=== PATIENT | female | born 2000 | race Caucasian/White ===

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

== ENCOUNTER 2018-01-18 21:01 | Emergency (ER) | payer BC ==
[2018-01-18 21:15] VITALS: BP 141/75; PULSE 96; RESP 18; TEMP 98.8
--- NOTE | 2018-01-18 21:59 | ED ---
Extremity Problem HPI - General Chief complaint: Extremity Problem,Nontraumatic Stated complaint: infected toe Time Seen by Provider: 01/18/18 21:34 Source: patient, RN notes reviewed Mode of arrival: ambulatory Limitations: no limitations - History of Present Illness Initial comments: This is a 17-year-old female who presents to the emergency department with chief complaint of toe infection. Patient states that her left great toe developed swelling and pain 2 weeks ago. She initially thought it was an ingrown toenail so clipped her nail down short. She states that today the toe became red and increasingly painful. Denies any history of MRSA. Denies any specific injuries or trauma. Denies fever, chills, chest pain, shortness of breath, abdominal pain, nausea or vomiting, constipation or diarrhea, dysuria or hematuria, numbness or tingling, headache or vision changes. - Related Data Home Medications Medication Instructions Recorded Confirmed Rivaroxaban [Xarelto] 15 mg PO DAILY 01/18/18 01/18/18 Previous Rx's Medication Instructions Recorded Cephalexin [Keflex] 500 mg PO Q12HR #20 cap 01/18/18 Mupirocin 2% Oint [Bactroban 2% 1 applic TOPICAL TID #1 tube 01/18/18 Oint] Allergies Allergy/AdvReac Type Severity Reaction Status Date / Time No Known Allergies Allergy Verified 09/24/17 14:40 Review of Systems ROS Statement: Those systems with pertinent positive or pertinent negative responses have been documented in the HPI. ROS Other: All systems not noted in ROS Statement are negative. Past Medical History Past Medical History: Deep Vein Thrombosis (DVT) History of Any Multi-Drug Resistant Organisms: None Reported Past Surgical History: No Surgical Hx Reported Past Psychological History: No Psychological Hx Reported Smoking Status: Never smoker Past Alcohol Use History: None Reported Past Drug Use History: None Reported General Exam - General Exam Comments Initial Comments: General: Awake and alert, well-developed; in no apparent distress. HEENT: Head atraumatic, normocephalic. Pupils are equal, round and reactive to light. Extraocular movements intact. Oropharynx moist without erythema or exudate. Neck: Supple. Normal ROM. Cardiovascular: Regular rate and rhythm. No murmurs, rubs or gallops. Chest symmetrical. Respiratory: Lungs clear to auscultation bilaterally. No wheezes, rales or rhonchi. Normal respiratory effort with no use of accessory muscles. Musculoskeletal: Normal ROM, no tenderness bilateral upper and lower extremities. Ambulating normally. Skin: Reader, warm and dry. Left great toe redness and swelling noted along the lateral nail edge. No active drainage or bleeding. Neurological: Alert and oriented x3. CN II-XII grossly intact. Speech is fluent and answers are appropriate. No focal neuro deficits. Psychiatric: Normal mood and affect. No overt signs of depression or anxiety noted. Limitations: no limitations Course Vital Signs 01/18/18 21:11 Temperature 98.8 F Pulse Rate 96 Respiratory 18 Rate Blood Pressure 141/75 O2 Sat by Pulse 99 Oximetry Procedures - Incision & Drainage Consent Obtained: verbal consent Medical Decision Making - Medical Decision Making This is a 17-year-old female who presents to the emergency department with chief complaint of right toe infection. Patient does appear to have paronychia lateral nail fold of the left great toe. I and D with an 11 blade was attempted. Minimal blood content was drained. This case was discussed with attending physician, Dr. Hannah who also evaluated the patient. Patient will be given prescriptions for Keflex and mupirocin ointment. Patient is in no acute distress vital signs are stable. Recommended warm compresses. She will be discharged home. Patient is in agreement with plan and voices understanding. All questions were answered. Disposition Clinical Impression: Paronychia Disposition: HOME SELF-CARE Condition: Good Instructions: Paronychia (ED) Additional Instructions: Please apply warm compresses. Please take medications as prescribed. Please follow up with primary care provider within 1-2 days. Return to emergency department if symptoms should worsen or any concerns arise. Prescriptions: Cephalexin [Keflex] 500 mg PO Q12HR #20 cap Mupirocin 2% Oint [Bactroban 2% Oint] 1 applic TOPICAL TID #1 tube Referrals: Freddy Daniels MD [Primary Care Provider] - 1-2 days Time of Disposition: 21:58
== END 2018-01-18 22:03 | disposition home or self-care (01) ==
LOC: EC 21:01
DX: L03.031 Cellulitis of right toe (principal); Z86.718 Personal history of other venous thrombosis and embolism; Z79.01 Long term (current) use of anticoagulants
CPT/HCPCS: 10060; 99282

== ENCOUNTER 2018-11-28 17:00 | Inpatient (IN) | payer BC ==
--- NOTE | 2018-11-28 19:33 | ED ---
Female Urogenital HPI - General Chief complaint: Urogenital Stated complaint: 16 weeks & leaking Time Seen by Provider: 11/28/18 19:27 Source: patient, RN notes reviewed, old records reviewed Mode of arrival: ambulatory Limitations: no limitations - History of Present Illness Initial comments: This is a 18-year-old female the ER for evaluation. Patient resents today for evaluation regards to feeling cabral of fluid earlier today. Patient denies any pain otherwise has no complaints. Patient states this is her first . Does admit to lifting some heavy objects at work maybe 20 pounds. But no other specific trauma. MD Complaint: vaginal discharge -: minutes(s) Consistency: constant Improves with: none Worsens with: none Patient : Yes Associated Symptoms: other (vaginal fluid) - Related Data Home Medications Medication Instructions Recorded Confirmed Rivaroxaban [Xarelto] 15 mg PO DAILY 01/18/18 01/18/18 Previous Rx's Medication Instructions Recorded Cephalexin [Keflex] 500 mg PO Q12HR #20 cap 01/18/18 Mupirocin 2% Oint [Bactroban 2% 1 applic TOPICAL TID #1 tube 01/18/18 Oint] Allergies Allergy/AdvReac Type Severity Reaction Status Date / Time No Known Allergies Allergy Verified 11/28/18 17:05 Review of Systems ROS Statement: Those systems with pertinent positive or pertinent negative responses have been documented in the HPI. ROS Other: All systems not noted in ROS Statement are negative. Past Medical History Past Medical History: Deep Vein Thrombosis (DVT) History of Any Multi-Drug Resistant Organisms: None Reported Past Surgical History: No Surgical Hx Reported Past Psychological History: No Psychological Hx Reported Smoking Status: Never smoker Past Alcohol Use History: None Reported Past Drug Use History: None Reported General Exam Limitations: no limitations General appearance: alert, in no apparent distress, anxious Head exam: Present: atraumatic, normocephalic, normal inspection Eye exam: Present: normal appearance, PERRL, EOMI. Absent: scleral icterus, conjunctival injection, periorbital swelling ENT exam: Present: normal exam, mucous membranes moist Neck exam: Present: normal inspection. Absent: tenderness, meningismus, lymphadenopathy Respiratory exam: Present: normal lung sounds bilaterally. Absent: respiratory distress, wheezes, rales, rhonchi, stridor Cardiovascular Exam: Present: normal rhythm, tachycardia, normal heart sounds. Absent: systolic murmur, diastolic murmur, rubs, gallop, clicks GI/Abdominal exam: Present: soft, normal bowel sounds. Absent: distended, tenderness, guarding, rebound, rigid Extremities exam: Present: normal inspection, full ROM, normal capillary refill. Absent: tenderness, pedal edema, joint swelling, calf tenderness Back exam: Present: normal inspection Neurological exam: Present: alert, oriented X3, CN II-XII intact Psychiatric exam: Present: normal affect, normal mood Skin exam: Present: warm, dry, intact, normal color. Absent: rash Course Vital Signs 11/28/18 17:03 Temperature 97.6 F Pulse Rate 116 H Respiratory 20 Rate Blood Pressure 167/78 O2 Sat by Pulse 99 Oximetry - Reevaluation(s) Reevaluation #1: 11/28/18 20:11 Medical record reviewed Reevaluation #2: 11/28/18 20:[address] Mir who is patient's OB, okay for admission Medical Decision Making - Medical Decision Making 18-year-old female the ER for evaluation, patient felt a cabral of fluid in her vagina, positive premature rupture of membranes. Patient will be admitted for antibiotics and continued evaluation by OB Disposition Clinical Impression: Premature rupture of membranes (PROM) affecting first Disposition: ADMITTED IP TO THIS HOSP Condition: Fair Referrals: Freddy Daniels MD [Primary Care Provider] - 1-2 days
[2018-11-28 20:12] LABS: Appearance,Urine Clear (Clear); Bacteria,Urine Rare /hpf; Bilirubin,Urine Negative (Negative); Blood,Urine Moderate (Negative); Color,Urine Yellow; Glucose,Urine (UA) Negative (Negative); Ketones,Urine Trace (Negative); Leukocyte Esterase,Urine Negative (Negative); Mucus,Urine Rare /hpf; Nitrite,Urine Negative (Negative); PH, Urine 6.5 (5.0-8.0); Protein,Urine 1+ (Negative); RBC,Urine 154 /hpf (0-5); Specific Gravity,Urine 1.029 (1.001-1.035); Squamous Epithelial Cell,Urine 5 /hpf (0-4); WBC,Urine 1 /hpf (0-5)
[2018-11-28 21:38] VITALS: BMI 46.9
[2018-11-28] MEDS ORDERED: ENOXAPARIN 40 MG/0.4 ML SYRINGE SQ STA (21:56)
--- NOTE | 2018-11-28 21:56 | US ---
EXAMINATION TYPE: US OB >= 14 wk fetus DATE OF EXAM: 11/28/2018 COMPARISON: None CLINICAL HISTORY: rupture of membranes TECHNIQUE: Transabdominal GESTATIONAL AGE / DATING Physician Established: (16 weeks/1 days) EDC: 05/14/2019 Dates by LMP: (16 weeks/1 days) EDC: 05/14/2019 Dates by First Scan: No previous Dates by Current Scan: (16 weeks/3 days) EDC: 05/12/2019 Beta HCG (if available): Not available at this time SURVEY IUP: Single PLACENTA: Anterior PREVIA: No Previa DUARTE: 0 cm Oligohydramnios CERVICAL LENGTH (transabdominal: norm > 3.0cm): Unable to visualize BIOMETRY PRESENTATION: Breech LIE: Longitudinal BPD: 3.11 cm 15 weeks / 5 days HC: 12.25 cm 16 weeks / 1 days AC: 10.42 cm 16 weeks / 3 days FL: 2.31 cm 17 weeks / 0 days ESTIMATED WEIGHT IN GRAMS: 161.5 grams ESTIMATED WEIGHT IN LBS/OZ: 0 lbs. 6 oz. WEIGHT PERCENTAGE BASED ON ESTABLISHED DATES: 71.6% HC/AC: 1.18 Normal FL/AC: 22.1 Normal HEART RATE: 176 bpm RHYTHM: Upper limits of normal Viable IUP with severe Oligohydramnios. IMPRESSION: Severe oligohydramnios.
[2018-11-28] MEDS ORDERED: ZOLPIDEM 10 MG TAB PO PRN (21:57)
--- NOTE | 2018-11-28 22:18 | P.HPOB ---
History of Present Illness H&P Date: 11/28/18 Chief Complaint: PROM-16 weeks 18 year old presents at 16 weeks 5 days with spontaneous rupture of membranes at 1630 today. This is confirmed with amniosure and US tonight. THere is a heart rate by US of 176. Baby is in breech position. WE discussed observation. At this point it is not recommended to start antibiotics to prolong latent phase. We had a long discussion about how far from viability she is and she seemed to understand the seriousness of the situation. SVE /- 3 Review of Systems All systems: negative Constitutional: Denies chills, Denies fever Eyes: denies blurred vision, denies pain Ears, nose, mouth and throat: Denies headache, Denies sore throat Cardiovascular: Denies chest pain, Denies shortness of breath Respiratory: Denies cough Gastrointestinal: Denies abdominal pain, Denies diarrhea, Denies nausea, Denies vomiting Genitourinary: Denies dysuria, Denies hematuria Musculoskeletal: Denies myalgias Integumentary: Denies pruritus, Denies rash Neurological: Denies numbness, Denies weakness Psychiatric: Denies anxiety, Denies depression Endocrine: Denies fatigue, Denies weight change Past Medical History Past Medical History: Deep Vein Thrombosis (DVT) (on lovenox 40mg daily; had the clot mostly surgically removed 09/2017 but says there is still some there.) Additional Past Medical History / Comment(s): OB history: she had care with Dr Puente. History of Any Multi-Drug Resistant Organisms: None Reported Past Surgical History: No Surgical Hx Reported Additional Past Surgical History / Comment(s): Thrombolysis Past Anesthesia/Blood Transfusion Reactions: No Reported Reaction Past Psychological History: No Psychological Hx Reported Smoking Status: Never smoker Past Alcohol Use History: None Reported Past Drug Use History: None Reported - Past Family History Mother Family Medical History: Cancer, Hypertension Medications and Allergies Home Medications Medication Instructions Recorded Confirmed Type Cholecalciferol (Vitamin D3) 2,000 unit PO DAILY 11/28/18 11/28/18 History [Vitamin D3] Enoxaparin [Lovenox] 40 mg SQ HS 11/28/18 11/28/18 History Pnv No.95/Ferrous Fum/Folic AC 1 tab PO DAILY 11/28/18 11/28/18 History [ Multivitamin Tablet] Allergies Allergy/AdvReac Type Severity Reaction Status Date / Time No Known Allergies Allergy Verified 11/28/18 21:06 Exam Osteopathic Statement: *. No significant issues noted on an osteopathic structural exam other than those noted in the History and Physical/Consult. Vital Signs Temp Pulse Pulse Resp BP BP Pulse Ox 11/28/18 21:34 110 H 20 145/70 11/28/18 20:51 146/76 11/28/18 20:48 98.4 F 105 H 18 98 11/28/18 20:16 98.8 F 121 H 18 136/66 99 11/28/18 17:03 97.6 F 116 H 20 167/78 99 Intake and Output 11/28/18 11/28/18 11/28/18 06:59 14:59 22:59 Other: Weight 120.202 kg Heart: RRR Lungs: CTAB Abdomen: soft, nontender Results Abnormal Lab Results - Last 24 Hours (Table) 11/28/18 Range/Units 19:50 Urine Protein 1+ H (Negative) Urine Ketones Trace H (Negative) Urine Blood Moderate H (Negative) Urine RBC 154 H (0-5) /hpf Ur Squamous Epith Cells 5 H (0-4) /hpf Urine Bacteria Rare H (None) /hpf Urine Mucus Rare H (None) /hpf Assessment and Plan (1) Premature rupture of membranes (PROM) affecting first Current Visit: Yes Status: Acute Code(s): O42.90 - CHIP ROM, 7TH0 BETW RUPT & ONST LABR, UNSP WEEKS OF GEST SNOMED Code(s): 62207674 Plan: 1. admit to [facility] 2. expectant management 3. CBC
[2018-11-28 22:35] LABS: Anisocytosis Slight; Basophils % (A) 0 %; Eosinophils # (A) 0.1 k/uL (0-0.7); Eosinophils % (A) 1 %; HCT 37.5 % (34.0-46.0); Lymphocytes # (A) 1.5 k/uL (1.0-4.8); Lymphocytes % (A) 13 %; MCH 24.4 pg (25.0-35.0); MCHC 32.1 g/dL (31.0-37.0); MCV 76.2 fL (80.0-100.0); Mean Platelet Volume 6.9; Microcytosis Slight; Monocytes # (A) 0.4 k/uL (0-1.0); Monocytes % (A) 4 %; Neutrophils # (A) 9.3 k/uL (1.3-7.7); Neutrophils % (A) 81 %; Platelet Count 215 k/uL (150-450); RBC 4.92 m/uL (3.80-5.40); RDW 16.8 % (11.5-15.5); WBC 11.5 k/uL (4.0-11.0)
[2018-11-29] MEDS: ZOLPIDEM 5 MG TAB PO PRN ×2 (00:53→00:56)
[2018-11-29 06:42] LABS: Anisocytosis Slight; Basophils % (A) 0 %; Eosinophils # (A) 0.2 k/uL (0-0.7); Eosinophils % (A) 2 %; HGB 11.5 gm/dL (11.4-16.0); Lymphocytes # (A) 1.9 k/uL (1.0-4.8); Lymphocytes % (A) 15 %; MCH 24.5 pg (25.0-35.0); MCHC 31.9 g/dL (31.0-37.0); MCV 76.8 fL (80.0-100.0); Mean Platelet Volume 6.5; Microcytosis Slight; Monocytes # (A) 0.4 k/uL (0-1.0); Monocytes % (A) 3 %; Neutrophils # (A) 9.3 k/uL (1.3-7.7); Neutrophils % (A) 78 %; Platelet Count 212 k/uL (150-450); RBC 4.69 m/uL (3.80-5.40); RDW 16.8 % (11.5-15.5)
--- NOTE | 2018-11-29 08:50 | P.PN ---
Progress Note - Text Progress Note Date: 11/29/18 18 year old at 16 weeks 6 days admitted for PROM. Yesterday baby did have a heart rate of 176, will check daily for heart tones. Today pt is not feeling any cramping or bleeding, still leaking clear fluid. Afebrile and feeling ok. WBC count is slightly higher than yesterday. VSS abdomen: soft, nontender A1. at 16 weeks 6 days with PROM 2. DVT P1. Hematology should come see her today-cont lovenox a current dose until any other recs are made 2. FHT daily 3. CBC daily
[2018-11-29] MEDS: PRENATAL VIT-IRON-FOLIC ACID 1 EACH CAP PO SCH (09:03)
--- NOTE | 2018-11-29 13:10 | P.CONS ---
History of Present Illness - Reason for Consult Consult date: 11/29/18 Hx: of Thrombus Requesting physician: Mary Carmen Mir - Chief Complaint rupture - History of Present Illness Brooklynn is a very pleasant young female who is 16 weeks gestation with her first . In September of 2017, she had a fall through porch which resulted in extensive superficial and deep vein thrombosis. She was seen at [facility], underwent thrombectomy and then was treated with Xarelto for 3 or 4 months (per patient). She believes she underwent a hypercoaguable work-up but does not remember. 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 She has been doing well since without recurrent clotting identified. Because of her history she was placed on Lovenox prophylaxis dose during her . Unfortunetely, she presents today with rupture and loss of amniotic fluid. Because of the non-viable weeks of gestation she will be monitored on observation. She has no S/S of bleeding, pain, headaches or SOB. Review of Systems A 14 point reveiw of systems assessed and completed and all negative except HPI. Past Medical History Past Medical History: Deep Vein Thrombosis (DVT) (on lovenox 40mg daily; had the clot mostly surgically removed 09/2017 but says there is still some there.) Additional Past Medical History / Comment(s): OB history: she had care with Dr Puente. History of Any Multi-Drug Resistant Organisms: None Reported Past Surgical History: No Surgical Hx Reported Additional Past Surgical History / Comment(s): Thrombolysis Past Anesthesia/Blood Transfusion Reactions: No Reported Reaction Past Psychological History: No Psychological Hx Reported Smoking Status: Never smoker Past Alcohol Use History: None Reported Past Drug Use History: None Reported - Past Family History Mother Family Medical History: Cancer, Hypertension Medications and Allergies Home Medications Medication Instructions Recorded Confirmed Type Cholecalciferol (Vitamin D3) 2,000 unit PO DAILY 11/28/18 11/28/18 History [Vitamin D3] Enoxaparin [Lovenox] 40 mg SQ HS 11/28/18 11/28/18 History Pnv No.95/Ferrous Fum/Folic AC 1 tab PO DAILY 11/28/18 11/28/18 History [ Multivitamin Tablet] Allergies Allergy/AdvReac Type Severity Reaction Status Date / Time No Known Allergies Allergy Verified 11/28/18 21:06 Physical Exam Vitals: Vital Signs Temp Pulse Pulse Resp BP BP Pulse Ox 11/28/18 21:34 110 H 20 145/70 11/28/18 20:51 146/76 11/28/18 20:48 98.4 F 105 H 18 98 11/28/18 20:16 98.8 F 121 H 18 136/66 99 11/28/18 17:03 97.6 F 116 H 20 167/78 99 Intake and Output 11/28/18 11/29/18 11/29/18 22:59 06:59 14:59 Output Total 150 200 200 Balance -150 -200 -200 Output: Urine 150 200 200 Other: # Voids 1 1 1 Weight 120.202 kg - Constitutional General appearance: cooperative, no acute distress, obese - EENT Eyes: EOMI, PERRLA ENT: NA/AT, normal oropharynx - Neck Neck: normal ROM - Respiratory Respiratory: bilateral: CTA (no increased effort) - Cardiovascular Rhythm: regular Heart sounds: normal: S1, S2 - Gastrointestinal Obese, Non tender General gastrointestinal: soft - Integumentary Integumentary: normal - Neurologic Neurologic: CNII-XII intact - Musculoskeletal Musculoskeletal: gait normal, generalized weakness, strength equal bilaterally - Psychiatric Psychiatric: A&O x's 3, appropriate affect, intact judgment & insight Results CBC & Chem 7: 11/30/18 06:30 Labs: Abnormal Lab Results - Last 24 Hours (Table) 11/28/18 11/28/18 11/29/18 Range/Units 19:50 22:06 06:27 WBC 11.5 H 12.0 H (4.0-11.0) k/uL MCV 76.2 L 76.8 L (80.0-100.0) fL MCH 24.4 L 24.5 L (25.0-35.0) pg RDW 16.8 H 16.8 H (11.5-15.5) % Neutrophils # 9.3 H 9.3 H (1.3-7.7) k/uL Urine Protein 1+ H (Negative) Urine Ketones Trace H (Negative) Urine Blood Moderate H (Negative) Urine RBC 154 H (0-5) /hpf Ur Squamous Epith Cells 5 H (0-4) /hpf Urine Bacteria Rare H (None) /hpf Urine Mucus Rare H (None) /hpf Microbiology - Last 24 Hours (Table) 11/28/18 19:50 Urine Culture - Preliminary Urine,Clean Catch Venous US: report reviewed Assessment and Plan (1) History of thrombosis of vena cava Current Visit: Yes Status: Acute Code(s): Z86.718 - PERSONAL HISTORY OF OTHER VENOUS THROMBOSIS AND EMBOLISM SNOMED Code(s): 467219070 (2) History of thrombosis of lower extremity Current Visit: Yes Status: Acute Code(s): Z86.718 - PERSONAL HISTORY OF OTHER VENOUS THROMBOSIS AND EMBOLISM SNOMED Code(s): 257624733 (3) Premature rupture of membranes (PROM) affecting first Current Visit: Yes Status: Acute Code(s): O42.90 - CHIP ROM, 7TH0 BETW RUPT & ONST LABR, UNSP WEEKS OF GEST SNOMED Code(s): 76637865 Plan: Recommendations: 1. I will attempt to obtain all records from [facility] regarding her apparent provoked clot history and embolectomy. 2. Her complication is not likely related to her history of clotting or anticoagulation. 3. I agree with continuing on prophylaxis anticoagulation and if delivery is necessary to continue on lovenox prophylaxis after delivery. 4. Recommend repeat LE Doppler (Bilateral) 5. Lovenox can continue and she does not have to be on Heparin leading to delivery. 6. if doppler positive for dvt still with change to full strength AC hepain drip
--- NOTE | 2018-11-29 17:59 | US ---
EXAMINATION TYPE: US venous doppler duplex LE BI DATE OF EXAM: 11/29/2018 5:32 PM COMPARISON: US 2017 CLINICAL HISTORY: History of DVT, patient states no leg pain or swelling, patient on blood thinners, patient is 17 weeks , exam done portable. SIDE PERFORMED: Bilateral TECHNIQUE: The lower extremity deep venous system is examined utilizing real time linear array sonog jennifer with graded compression, doppler sonography and color-flow sonography. VESSELS IMAGED: External Iliac Vein (EIV) Common Femoral Vein Deep Femoral Vein Greater Saphenous Vein * Femoral Vein Popliteal Vein Small Saphenous Vein * Proximal Calf Veins (* superficial vessels) Difficult and limited study due to patient body habitus Right Leg: Grayscale, color doppler, spectral doppler imaging performed of the deep veins of the low er extremities. There is normal flow, compressibility, vascular waveforms. Left Leg: Partial compressibility with preserved Doppler signal is seen in the left popliteal vein. The remaining evaluation of the left lower extremity demonstrates preserved normal Doppler signal, co mpressibility and venous wave forms. IMPRESSION: 1. Partially occlusive thrombus of the left popliteal vein. Prior studies if available for comparison would be of benefit to assess for chronicity in this patient with reported history of prior DVT. 2. No evidence of deep vein thrombus in the right lower extremity.
[2018-11-29] MEDS ORDERED: ENOXAPARIN 40 MG/0.4 ML SYRINGE SQ SCH ×2 (21:00)
[2018-11-29] MEDS: SENNOSIDES-DOCUSATE SODIUM 1 EACH TAB PO SCH (21:14)
[2018-11-30] MEDS: ZOLPIDEM 5 MG TAB PO PRN (00:10)
[2018-11-30 06:46] LABS: Anisocytosis Slight; Basophils % (A) 0 %; Eosinophils # (A) 0.1 k/uL (0-0.7); Eosinophils % (A) 1 %; HCT 36.1 % (34.0-46.0); HGB 11.5 gm/dL (11.4-16.0); Lymphocytes # (A) 1.4 k/uL (1.0-4.8); Lymphocytes % (A) 10 %; MCH 24.2 pg (25.0-35.0); MCHC 31.9 g/dL (31.0-37.0); MCV 75.8 fL (80.0-100.0); Mean Platelet Volume 6.9; Microcytosis Slight; Monocytes # (A) 0.5 k/uL (0-1.0); Monocytes % (A) 4 %; Neutrophils # (A) 11.8 k/uL (1.3-7.7); Neutrophils % (A) 84 %; Platelet Count 203 k/uL (150-450); RBC 4.77 m/uL (3.80-5.40)
--- NOTE | 2018-11-30 07:44 | P.PN ---
Progress Note - Text Progress Note Date: 11/30/18 18 year old at 17 weeks with PPROM. She ruptured 2 days ago now. Her wbc count increased again from 12 to 14 today. She has no tenderness in her abdomen and she is afebrile. She has not started cramping or bleeding. heart tones today are 173. The only sign of infection is her slight elevation in white blood cell count. I will discuss case with [facility] to determine if she should remain inpatient for that or how aggressive we should be about delivery. I did read notes from hematology and will continue the lovenox. A1. at 17 weeks with PPROM 2. DVT-left leg P 1. cont current management and will discuss case with [facility]. There is a case for her possibly going home with close follow up vs delivery.
[2018-11-30] MEDS ORDERED: HEPARIN SODIUM,PORCINE 5,000 UNIT/ML 1 ML VIAL IV PRN (09:14)
--- NOTE | 2018-11-30 09:40 | P.PN ---
Subjective Progress Note Date: 11/30/18 Principal diagnosis: history of thrombosis Reviewed Lower extremity dopplers, appears to still have a partially occlusive thrombosis, unknown if worsen, improved, or chronic. WIll compare further when records are available for comparison from [facility]. In the picture of , which is a hypercoaguable state and potential escalation to post state from the rupture and loss of amniotic fluid we feel at this time converting from prophylaxis lovenox to a heparin drip will provide the most protection, as well as treatment, of the current hypercoaguable state. Objective - Vital Signs Vital signs: Vital Signs Temp 98.4 F 11/28/18 20:48 Pulse 110 H 11/28/18 21:34 Resp 20 11/28/18 21:34 BP 145/70 11/28/18 21:34 Pulse Ox 98 11/28/18 20:48 Intake & Output 11/29/18 11/30/18 11/30/18 18:59 06:59 18:59 Output Total 800 Balance -800 Output: Urine 800 Other: # Voids 1 - Exam - Constitutional General appearance: cooperative, no acute distress, obese - EENT Eyes: EOMI, PERRLA ENT: NA/AT, normal oropharynx - Neck Neck: normal ROM - Respiratory Respiratory: bilateral: CTA (no increased effort) - Cardiovascular Rhythm: regular Heart sounds: normal: S1, S2 - Gastrointestinal Obese, Non tender General gastrointestinal: soft - Integumentary Integumentary: normal - Neurologic Neurologic: CNII-XII intact - Musculoskeletal Musculoskeletal: gait normal, generalized weakness, strength equal bilaterally - Psychiatric Psychiatric: A&O x's 3, appropriate affect, intact judgment & insight - Labs CBC & Chem 7: 11/30/18 06:30 Labs: Abnormal Lab Results - Last 24 Hours (Table) 11/30/18 Range/Units 06:30 WBC 14.0 H (4.0-11.0) k/uL MCV 75.8 L (80.0-100.0) fL MCH 24.2 L (25.0-35.0) pg RDW 17.0 H (11.5-15.5) % Neutrophils # 11.8 H (1.3-7.7) k/uL Assessment and Plan (1) History of thrombosis of vena cava Current Visit: Yes Status: Acute Code(s): Z86.718 - PERSONAL HISTORY OF OTHER VENOUS THROMBOSIS AND EMBOLISM SNOMED Code(s): 715394737 (2) History of thrombosis of lower extremity Current Visit: Yes Status: Acute Code(s): Z86.718 - PERSONAL HISTORY OF OTHER VENOUS THROMBOSIS AND EMBOLISM SNOMED Code(s): 358355764 (3) Premature rupture of membranes (PROM) affecting first Current Visit: Yes Status: Acute Code(s): O42.90 - CHIP ROM, 7TH0 BETW RUPT & ONST LABR, UNSP WEEKS OF GEST SNOMED Code(s): 32894722 Plan: Assessment: 1. Premature Rupture Membrane: - Per DESIGNER/WRITER - Discussed with Dr. Mir today regarding plans for anticoagulation 2. DVT remains present in Lower extremity: - unclear if chronic versus progressed. [facility] - In the interim with plan for probable delivery, heparin drip at full dose anticoagualtion will be initiated, close monitoring for bleeding. - Ok to turn off prior to delivery, approx 6 hours. POst rec full dose anticoagulation for 6-12 weeks, maybe more depending on comparision and hypercoag work-up as out patient - She has appointment with Dr. Ortega as new patient next week. Discussed in detail with Dr. Mir and Dr. Wu
[2018-11-30 10:02] LABS: INR 0.9 (<1.2); Partial Thromboplastin Time 24.3 sec (22.0-30.0); Prothrombin Time 9.5 sec (9.0-12.0)
[2018-11-30] MEDS ORDERED: AZITHROMYCIN 500 MG in SODIUM CHLORIDE 0.9% 250 ML IVPB SCH (10:30)
[2018-11-30] MEDS: HEPARIN SOD,PORK IN 0.45% NACL 25,000 UNIT in 0.45% NACL 1 250ML.BAG IV SCH (11:09)
[2018-11-30] MEDS: SENNOSIDES-DOCUSATE SODIUM 1 EACH TAB PO SCH (11:28)
[2018-11-30] MEDS ORDERED: AMPICILLIN 1,000 MG in SODIUM CHLORIDE 0.9% 50 ML IVPB SCH (12:00)
[2018-11-30] MEDS ORDERED: BENZOCAINE/MENTHOL SPRAY 1 GM/SPRAY AEROSOL TOPICAL PRN (13:48)
[2018-11-30] MEDS ORDERED: LANOLIN CREAM 5 GM TUBE TOPICAL PRN (13:48)
[2018-11-30] MEDS ORDERED: diphenhydrAMINE 25 MG CAP PO PRN (13:48)
[2018-11-30] MEDS ORDERED: SIMETHICONE 80 MG CHEWABLE PO PRN (13:48)
[2018-11-30] MEDS ORDERED: WITCH HAZEL 1 EACH MED..PAD TOPICAL PRN (13:48)
[2018-11-30] MEDS ORDERED: HYDROCORTISONE 2.5% RECTAL CREAM 30 GM TUBE RECTAL PRN (13:48)
[2018-11-30] MEDS ORDERED: diphenhydrAMINE 50 MG CAP PO PRN (13:48)
[2018-11-30] MEDS ORDERED: diphenhydrAMINE 50 MG/ML 1 ML VIAL IVP PRN ×2 (13:48)
[2018-11-30] MEDS ORDERED: METHYLERGONOVINE 0.2 MG/ML 1 ML AMP IM ONE (13:50)
[2018-11-30] MEDS ORDERED: ACETAMINOPHEN TAB 325 MG TAB PO PRN (19:16)
[2018-11-30] MEDS ORDERED: DIPHENOX-ATROP 2.5-0.025 MG 1 EACH TAB PO PRN (19:16)
[2018-11-30] MEDS ORDERED: ONDANSETRON 4 MG/2 ML VIAL IVP PRN (19:16)
[2018-11-30] MEDS: ACETAMINOPHEN TAB 325 MG TAB PO PRN (19:33)
[2018-11-30] MEDS: SODIUM CHLORIDE 0.9% 1,000 ML IV SCH (20:06)
[2018-11-30] MEDS: PRENATAL VIT-IRON-FOLIC ACID 1 EACH CAP PO SCH (20:06)
[2018-11-30] MEDS: CARBOPROST TROMETHAMINE 250 MCG/ML 1 ML AMP IM SCH ×2 (20:16→23:21)
[2018-12-01] MEDS ORDERED: MIDAZOLAM 2 MG/2 ML VIAL ONE (00:53)
[2018-12-01] MEDS ORDERED: PROPOFOL 10 MG/ML 20 ML VIAL IV ONE (00:53)
[2018-12-01] MEDS ORDERED: fentaNYL (PF) 50 MCG/ML 2 ML AMP ONE (00:53)
[2018-12-01] MEDS ORDERED: LIDOCAINE 1% INJ 10MG/ML (20 ML MDV) ONE (00:53)
[2018-12-01] MEDS ORDERED: SUCCINYLCHOLINE CHLORIDE 100 MG/5 ML SYR IV ONE (00:53)
[2018-12-01] MEDS ORDERED: OXYTOCIN 10 UNIT/ML 1 ML VIAL ONE (00:53)
[2018-12-01] MEDS ORDERED: ONDANSETRON 4 MG/2 ML VIAL ONE (00:53)
--- NOTE | 2018-12-01 01:59 | P.PROBDLV ---
Vaginal Delivery Note - . Vaginal Delivery Note: 18-year-old presented at 16 weeks and 5 days with spontaneous rupture of membranes. She was on bedrest for over 24 hours with an increasing white blood cell count but no abdominal tenderness and no fever. She got up to the bathroom today and had a little bit of back pain and noticed some bright red bleeding. When the nurse checked her she felt parts in the vagina. I immediately came to the hospital and found the body up to the head of the fetus in the vagina. I the patient pushed a few times and the fetus delivered spontaneously. Apgars 0 and 0. Cord clamp was placed on the umbilical cord of the placenta to wait for spontaneous delivery of this. Patient did not have any bleeding at this time.
--- NOTE | 2018-12-01 02:03 | P.OP ---
Date of Procedure: 12/01/18 Preoperative Diagnosis: 1. Status post vaginal delivery of 17 week demise 2. Retained placenta Postoperative Diagnosis: 1. Status post vaginal delivery of 17 week demise 2. Retained placenta Procedure(s) Performed: D&C Anesthesia: ROLF Surgeon: Mary Carmen Mir Estimated Blood Loss (ml): 1,500 IV fluids (ml): 600 Urine output (ml): 200 Pathology: other (Placenta in pieces) Condition: stable Disposition: floor Indications for Procedure: 18-year-old presented at 16 weeks and 5 days with spontaneous rupture of membranes. She was on bedrest for about 2 days but did go into spontaneous labor. The placenta did not deliver on its on right away. 2 doses of Hemabate were given to help encourage the placenta to deliver. About 12 hours after delivery, the patient had still not delivered the placenta and she was becoming increasingly agitated. Informed consent was obtained and surgery to the operating room for a D&C to remove the placenta. Description of Procedure: Patient is taken the operating room where general anesthesia was obtained without difficulty. She still prepped and draped in normal sterile fashion dorsal lithotomy position, legs placed in the [place] stirrups. Bladder was drained of all urine. Weighted speculum placed in vagina the anterior lip the cervix was grasped with Allis. Ring forcep was used to grasp pieces of the placenta and remove them. Sharp banjo curet was also used to loosen the placental tissue. The ring forcep and polyp forceps were passed several times to remove more tissue. The uterus was massaged and Pitocin was added to the IV. When the patient was still bleeding she was given Methergine 0.2 mg IM. The uterus did clamp down after this and hemostasis was assured. Patient tolerated the procedure well, sponge management counts are correct 2. She was taken back to her room for recovery in stable condition.
[2018-12-01] MEDS: SODIUM CHLORIDE 0.9% 1,000 ML IV SCH (02:35)
[2018-12-01] MEDS: SENNOSIDES-DOCUSATE SODIUM 1 EACH TAB PO SCH ×5 (03:17→20:20)
[2018-12-01 04:26] LABS: Prothrombin Time 10.3 sec (9.0-12.0)
[2018-12-01 04:37] LABS: Anisocytosis Slight; Basophils % (A) 0 %; Eosinophils % (A) 0 %; HCT 34.5 % (34.0-46.0); Lymphocytes # (A) 1.1 k/uL (1.0-4.8); Lymphocytes % (A) 5 %; MCH 24.7 pg (25.0-35.0); MCV 77.3 fL (80.0-100.0); Mean Platelet Volume 7.8; Microcytosis Slight; Monocytes # (A) 0.5 k/uL (0-1.0); Monocytes % (A) 3 %; Neutrophils # (A) 19.7 k/uL (1.3-7.7); Neutrophils % (A) 91 %; Platelet Count 219 k/uL (150-450); RBC 4.46 m/uL (3.80-5.40); RDW 17.2 % (11.5-15.5); WBC 21.5 k/uL (4.0-11.0)
[2018-12-01] MEDS ORDERED: HEPARIN SODIUM,PORCINE 5,000 UNIT/ML 1 ML VIAL IV STA (05:12)
[2018-12-01] MEDS: HEPARIN SOD,PORK IN 0.45% NACL 25,000 UNIT in 0.45% NACL 1 250ML.BAG IV SCH ×2 (05:39→20:19)
--- NOTE | 2018-12-01 08:54 | P.PN ---
Progress Note - Text Progress Note Date: 12/01/18 Patient seen and evaluated. She is resting comfortably. She denies any heavy bleeding at this time. Pain is well-controlled. She states it does hurt a little bit when she urinates. Vital signs are stable. Impression is status post vaginal delivery of a nonviable fetus followed by dilation and curettage for retained placenta postoperative day #0. Plan is to continue with hematology recommendations for anticoagulation with heparin. When she is able to switch to oral medication, she may be old be discharged. We will continue antibiotics for 24 hours postoperative.
[2018-12-01] MEDS: PRENATAL VIT-IRON-FOLIC ACID 1 EACH CAP PO SCH (09:38)
[2018-12-01 12:00] LABS: Anisocytosis Slight; Basophils % (A) 0 %; Eosinophils # (A) 0.1 k/uL (0-0.7); Eosinophils % (A) 0 %; HCT 29.6 % (34.0-46.0); HGB 9.7 gm/dL (11.4-16.0); Lymphocytes # (A) 1.8 k/uL (1.0-4.8); Lymphocytes % (A) 11 %; MCH 25.2 pg (25.0-35.0); MCHC 32.8 g/dL (31.0-37.0); MCV 76.8 fL (80.0-100.0); Mean Platelet Volume 7.8; Microcytosis Slight; Monocytes # (A) 0.5 k/uL (0-1.0); Monocytes % (A) 3 %; Neutrophils # (A) 13.7 k/uL (1.3-7.7); Neutrophils % (A) 84 %; Platelet Count 223 k/uL (150-450); RBC 3.85 m/uL (3.80-5.40); RDW 17.5 % (11.5-15.5); WBC 16.3 k/uL (4.0-11.0)
[2018-12-01 12:12] LABS: INR 0.9 (<1.2)
[2018-12-01] MEDS ORDERED: HEPARIN SODIUM,PORCINE 5,000 UNIT/ML 1 ML VIAL IV ONE (13:00)
--- NOTE | 2018-12-01 17:36 | P.PN ---
Subjective Progress Note Date: 12/01/18 Principal diagnosis: history of thrombosis Reviewed Lower extremity dopplers, appears to still have a partially occlusive thrombosis, unknown if worsen, improved, or chronic. WIll compare further when records are available for comparison from [facility]. In the picture of , which is a hypercoaguable state and potential escalation to post state from the rupture and loss of amniotic fluid we feel at this time converting from prophylaxis lovenox to a heparin drip will provide the most protection, as well as treatment, of the current hypercoaguable state. Objective - Vital Signs Vital signs: Vital Signs Temp 98.2 F 12/01/18 16:06 Pulse 103 H 12/01/18 16:06 Resp 20 12/01/18 16:06 BP 133/72 12/01/18 16:06 Pulse Ox 97 12/01/18 04:05 Intake & Output 11/30/18 12/01/18 12/01/18 18:59 06:59 18:59 Intake Total 300 250 Output Total 65908 350 Balance 300 -88604 -350 Intake: Intake, IV Titration 300 250 Amount Ampicillin 1,000 mg In 50 Sodium Chloride 0.9% 50 ml @ 100 mls/hr IVPB Q6HR MICHELLE Rx#:[id number] Azithromycin 500 mg In 250 Sodium Chloride 0.9% 250 ml @ 250 mls/hr IVPB DAILY MICHELLE Rx#:[id number] Heparin Sod,Pork in 0.45% 250 NaCl 25,000 unit In 0.45 % NaCl 1 250ml.bag @ 18 UNITS/KG/HR 21.63 mls/hr IV .[id number] MICHELLE Rx#: [id number] Output: Urine 1700 350 Estimated Blood Loss 9000 Other: # Voids 1 1 - Exam - Constitutional General appearance: cooperative, no acute distress, obese - EENT Eyes: EOMI, PERRLA ENT: NA/AT, normal oropharynx - Neck Neck: normal ROM - Respiratory Respiratory: bilateral: CTA (no increased effort) - Cardiovascular Rhythm: regular, tachy 104 Heart sounds: normal: S1, S2 - Gastrointestinal Obese, Non tender General gastrointestinal: soft - Integumentary Integumentary: normal - Neurologic Neurologic: CNII-XII intact - Musculoskeletal Musculoskeletal: gait normal, generalized weakness, strength equal bilaterally - Psychiatric Psychiatric: A&O x's 3, appropriate affect, intact judgment & insight - Labs CBC & Chem 7: 12/01/18 17:36 Labs: Abnormal Lab Results - Last 24 Hours (Table) 12/01/18 12/01/18 12/01/18 Range/Units 04:09 11:31 11:31 WBC 21.5 H 16.3 H (4.0-11.0) k/uL Hgb 11.0 L 9.7 L (11.4-16.0) gm/dL Hct 29.6 L (34.0-46.0) % MCV 77.3 L 76.8 L (80.0-100.0) fL MCH 24.7 L (25.0-35.0) pg RDW 17.2 H 17.5 H (11.5-15.5) % Neutrophils # 19.7 H 13.7 H (1.3-7.7) k/uL APTT 45.4 H (22.0-30.0) sec Microbiology - Last 24 Hours (Table) 11/28/18 19:50 Urine Culture - Preliminary Urine,Clean Catch Gram Neg Bacilli Assessment and Plan (1) History of thrombosis of vena cava Current Visit: Yes Status: Acute Code(s): Z86.718 - PERSONAL HISTORY OF OTHER VENOUS THROMBOSIS AND EMBOLISM SNOMED Code(s): 488602729 (2) History of thrombosis of lower extremity Current Visit: Yes Status: Acute Code(s): Z86.718 - PERSONAL HISTORY OF OTHER VENOUS THROMBOSIS AND EMBOLISM SNOMED Code(s): 640047851 (3) Premature rupture of membranes (PROM) affecting first Current Visit: Yes Status: Acute Code(s): O42.90 - CHIP ROM, 7TH0 BETW RUPT & ONST LABR, UNSP WEEKS OF GEST SNOMED Code(s): 18505686 Plan: Assessment: 1. Premature Rupture Membrane: - Per [employer]ER - Discussed with Dr. Mir today regarding plans for anticoagulation 2. DVT remains present in Lower extremity: - Awaiting comparison from prior Doppler for acuity of LE thrombus: Chronic versus Residual Versus Acute - Will prescribe Eliquis, start today after Heparin drip is turned off - Will prescribe treatment dose until comparison can be reviewed, if prophylaxis is needed plan to be on for 6-8 weeks post - Follow-up with Dr. Ortega on 12/03 as scheduled. As long as no excessive bleeding or significant drops in hemoglobin in am, and tolerates first dose of eliquis after heparin discontinued, cleared by hematology RX for 10mg po BID x7 days, then 5mg PO BID daily sent to pharmacy in chart and added to discharge.
[2018-12-01 17:45] LABS: Anisocytosis Slight; Basophils % (A) 0 %; Eosinophils # (A) 0.1 k/uL (0-0.7); Eosinophils % (A) 1 %; HCT 27.2 % (34.0-46.0); HGB 8.8 gm/dL (11.4-16.0); Lymphocytes # (A) 2.3 k/uL (1.0-4.8); Lymphocytes % (A) 18 %; MCH 24.7 pg (25.0-35.0); MCHC 32.2 g/dL (31.0-37.0); MCV 76.8 fL (80.0-100.0); Mean Platelet Volume 9.3; Microcytosis Slight; Monocytes # (A) 0.5 k/uL (0-1.0); Monocytes % (A) 4 %; Neutrophils % (A) 76 %; Platelet Count 188 k/uL (150-450); RBC 3.54 m/uL (3.80-5.40); RDW 17.5 % (11.5-15.5); WBC 13.2 k/uL (4.0-11.0)
[2018-12-01] MEDS: APIXABAN 5 MG TAB PO SCH (18:07)
[2018-12-01 18:08] LABS: INR 0.9 (<1.2); Prothrombin Time 9.8 sec (9.0-12.0)
[2018-12-01] MEDS: ACETAMINOPHEN TAB 325 MG TAB PO PRN (19:41)
[2018-12-02 06:39] LABS: Anisocytosis Slight; Basophils % (A) 0 %; Eosinophils # (A) 0.2 k/uL (0-0.7); Eosinophils % (A) 2 %; HCT 26.4 % (34.0-46.0); HGB 8.6 gm/dL (11.4-16.0); Lymphocytes # (A) 1.6 k/uL (1.0-4.8); Lymphocytes % (A) 18 %; MCH 25.3 pg (25.0-35.0); MCHC 32.6 g/dL (31.0-37.0); MCV 77.5 fL (80.0-100.0); Mean Platelet Volume 8.9; Microcytosis Slight; Monocytes # (A) 0.4 k/uL (0-1.0); Monocytes % (A) 4 %; Neutrophils # (A) 6.7 k/uL (1.3-7.7); Neutrophils % (A) 75 %; Platelet Count 180 k/uL (150-450); RDW 17.3 % (11.5-15.5)
[2018-12-02 08:21] VITALS: BP 139/63; PULSE 90; RESP 14; TEMP 97.9
[2018-12-02] MEDS: APIXABAN 5 MG TAB PO SCH (08:59)
[2018-12-02] MEDS: SENNOSIDES-DOCUSATE SODIUM 1 EACH TAB PO SCH (09:04)
--- NOTE | 2018-12-02 09:45 | P.DS ---
Providers Date of admission: 11/28/18 20:14 Expected date of discharge: 12/02/18 Attending physician: Mary Carmen Mir Consults: 11/28/18 21:59 Consult Physician Routine Consulting Provider: Bernard Díaz Consult Reason/Comments: DVT Do you want consulting provider notified?: Yes Primary care physician: [facility] Course: This is a 18-year-old female 1 para 0 who presented at 16-1/2 weeks with spontaneous rupture of membranes. She was observed in the hospital for a couple days before spontaneous labor ensued. She has a history of a DVT over a year ago and has been on Lovenox at home for DVT prophylaxis. She was seen by hematology here who does confirm that she still does have a DVT. They did start her on full heparin drip since she was going to be on bedrest for quite some time. Once she delivered the nonviable fetus she did require a D&C for retained placenta. She did have a significant amount of blood loss during that D&C at approximately 1500 mL's. She was restarted on her heparin drip after the D&C and her bleeding has been very minimal since. The heparin drip was stopped yesterday and she was started Eliquis. She has an appointment tomorrow to follow up with Dr. Díaz. She denies any heavy bleeding now. She denies any shortness of breath or dizziness. Pain is fairly well controlled. Vital signs are stable. Abdomen is soft with fundus firm and nontender. Extremities show negative Homans. Impression is status post miscarriage before 20 weeks with dilation and curettage for retained placenta and known DVT. Plan is to discharge home today. She will follow-up with Dr. de leon all as scheduled. They have given her prescriptions for Eliquis. She will follow up with me in the office in 1 week. She is advised to call the office if she has any further questions or concerns prior to her appointment time. Procedures: Spontaneous vaginal delivery of a nonviable fetus before 20 weeks Dilation and curettage for retained placenta Patient Condition at Discharge: Fair Plan - Discharge Summary New Discharge Prescriptions: New Apixaban [Eliquis] 10 mg PO BID #12 tab Apixaban [Eliquis] 5 mg PO BID #60 tab Continue Pnv No.95/Ferrous Fum/Folic AC [ Multivitamin Tablet] 1 tab PO DAILY Cholecalciferol (Vitamin D3) [Vitamin D3] 2,000 unit PO DAILY Discontinued Enoxaparin [Lovenox] 40 mg SQ HS Discharge Medication List Cholecalciferol (Vitamin D3) [Vitamin D3] 2,000 unit PO DAILY 11/28/18 [History] Pnv No.95/Ferrous Fum/Folic AC [ Multivitamin Tablet] 1 tab PO DAILY [History] Apixaban [Eliquis] 5 mg PO BID #60 tab 12/01/18 [Rx] Apixaban [Eliquis] 10 mg PO BID #12 tab 12/01/18 [Rx] Follow up Appointment(s)/Referral(s): Freddy Daniels MD [Primary Care Provider] - 1-2 days Bernard Díaz MD [STAFF PHYSICIAN] - 12/03/18 2:15 pm Wen Puente DO [Doctor of Osteopathic Medicine] - 1 Week Activity/Diet/Wound Care/Special Instructions: Activity as tolerated. Diet as tolerated. May shower but no tub baths for 1 week. No intercourse until seen in the office and control discussed. Discharge Disposition: HOME SELF-CARE
[2018-12-08] MEDS ORDERED: APIXABAN 5 MG TAB PO SCH (21:00)
== END 2018-12-02 13:19 | disposition home or self-care (01) | DRG 770 ==
LOC: EC 17:00 → 4FBP 20:14
PROVIDERS: ADMIT Obstetrics & Gynecology; ATTEND Obstetrics & Gynecology
PROC: 10D17ZZ Extraction of Products of Conception, Retained, Via Natural or Artificial Opening (ICD-10-PCS; principal; 2018-12-01 01:00)
DX: O02.1 Missed abortion (principal); I82.432 Acute embolism and thrombosis of left popliteal vein; O42.112 Preterm premature rupture of membranes, onset of labor more than 24 hours following rupture, second trimester; X50.0XXA Overexertion from strenuous movement or load, initial encounter; Z79.01 Long term (current) use of anticoagulants; Z82.49 Family history of ischemic heart disease and other diseases of the circulatory system; Z3A.16 16 weeks gestation of pregnancy
CPT/HCPCS: 76805; 81001; 85025; 85610; 85730; 86850; 86900; 86901; 87077; 87086; 87186; 88300; 88305; 93970; 99285

== ENCOUNTER 2021-01-22 16:39 | Emergency (ER) | payer BC ==
[2021-01-22 16:54] VITALS: RESP 20
[2021-01-22] MEDS ORDERED: IBUPROFEN 600 MG TAB PO STA (17:20)
[2021-01-22] MEDS ORDERED: ACETAMINOPHEN TAB 325 MG TAB PO STA (17:20)
[2021-01-22 17:35] LABS: Basophils % (A) 1 %; Eosinophils # (A) 0.1 k/uL (0-0.7); Eosinophils % (A) 2 %; HGB 15.8 gm/dL (11.4-16.0); Lymphocytes # (A) 1.3 k/uL (1.0-4.8); Lymphocytes % (A) 32 %; MCH 26.2 pg (25.0-35.0); MCHC 32.8 g/dL (31.0-37.0); MCV 79.8 fL (80.0-100.0); Mean Platelet Volume 7.8; Monocytes # (A) 0.2 k/uL (0-1.0); Monocytes % (A) 4 %; Neutrophils # (A) 2.4 k/uL (1.3-7.7); Neutrophils % (A) 60 %; Platelet Count 173 k/uL (150-450); RBC 6.01 m/uL (3.80-5.40); RDW 14.1 % (11.5-15.5)
[2021-01-22 17:44] LABS: ALT 48 U/L (4-34); AST 39 U/L (14-36); African American GFR (CKD) >90 (>60 ml/min/1.73 sqM); Albumin 4.3 g/dL (3.5-5.0); Alkaline Phosphatase 98 U/L (38-126); Anion Gap 9 mmol/L; Blood Urea Nitrogen 11 mg/dL (7-17); Calcium 8.7 mg/dL (8.4-10.2); Carbon Dioxide 27 mmol/L (22-30); Chloride 102 mmol/L (98-107); Glucose 96 mg/dL (74-99); Non-African American GFR(CKD) >90 (>60 ml/min/1.73 sqM); Sodium 138 mmol/L (137-145); Total Bilirubin 0.6 mg/dL (0.2-1.3); Total Protein 7.3 g/dL (6.3-8.2)
--- NOTE | 2021-01-22 18:11 | XR ---
EXAMINATION TYPE: XR chest 2V DATE OF EXAM: 01/22/2021 COMPARISON: NONE HISTORY: Cough and short of breath TECHNIQUE: 2 views FINDINGS: There is bilateral patchy interstitial pneumonia. Heart and mediastinum are normal. There i s no pleural effusion. There are no hilar masses. IMPRESSION: Mild bilateral interstitial pneumonia.
--- NOTE | 2021-01-22 18:13 | ED ---
SOB HPI - General Chief Complaint: Shortness of Breath Stated Complaint: Covid symptoms Time Seen by Provider: 01/22/21 17:05 Source: patient, RN notes reviewed Mode of arrival: ambulatory Limitations: no limitations - History of Present Illness Initial Comments: Patient is a 20-year-old female that presents to emergency department complaining of one-week of cough and chest congestion. She noted that for about the last 7-8 days she has felt a little rundown had a cough. She'll that 2 days ago she felt much better. Until yesterday when she slept for 15 hours that woke up feeling really bad. She states that she did have a cough that was nonprodu ctive and dry. She had not been test for Covid and can emergency room to get tested just make sure she didn't have it. She denied any chest pain headache nausea vomiting diarrhea constipation fatigue chills. - Related Data Home Medications Medication Instructions Recorded Confirmed Cholecalciferol (Vitamin D3) 2,000 unit PO DAILY 11/28/18 05/07/19 [Vitamin D3] Pnv No.95/Ferrous Fum/Folic AC 1 tab PO DAILY 11/28/18 05/07/19 [ Multivitamin Tablet] Allergies Allergy/AdvReac Type Severity Reaction Status Date / Time No Known Allergies Allergy Verified 05/07/19 14:09 Review of Systems ROS Statement: Those systems with pertinent positive or pertinent negative responses have been documented in the HPI. ROS Other: All systems not noted in ROS Statement are negative. Past Medical History Past Medical History: Deep Vein Thrombosis (DVT) Additional Past Medical History / Comment(s): OB history: she had care with Dr Puente. History of Any Multi-Drug Resistant Organisms: None Reported Past Surgical History: No Surgical Hx Reported Additional Past Surgical History / Comment(s): Thrombolysis Past Anesthesia/Blood Transfusion Reactions: No Reported Reaction Past Psychological History: No Psychological Hx Reported Smoking Status: Never smoker Past Alcohol Use History: None Reported Past Drug Use History: None Reported - Past Family History Mother Family Medical History: Cancer, Hypertension General Exam Limitations: no limitations General appearance: alert, in no apparent distress, obese Head exam: Present: atraumatic, normocephalic, normal inspection Eye exam: Present: normal appearance, PERRL, EOMI. Absent: scleral icterus, conjunctival injection, periorbital swelling ENT exam: Present: normal exam, mucous membranes moist Neck exam: Present: normal inspection. Absent: tenderness, meningismus, lymphadenopathy Respiratory exam: Present: normal lung sounds bilaterally. Absent: respiratory distress, wheezes, rales, rhonchi, stridor Cardiovascular Exam: Present: regular rate, normal rhythm, normal heart sounds. Absent: systolic murmur, diastolic murmur, rubs, gallop, clicks Extremities exam: Present: normal inspection, full ROM, normal capillary refill. Absent: tenderness, pedal edema, joint swelling, calf tenderness Back exam: Present: normal inspection Neurological exam: Present: alert, oriented X3, CN II-XII intact Psychiatric exam: Present: normal affect, normal mood Skin exam: Present: warm, dry, intact, normal color. Absent: rash Course Vital Signs 01/22/21 01/22/21 16:50 18:28 Temperature 103.1 F H 100.9 F H Pulse Rate 117 H 113 H Respiratory 20 20 Rate Blood Pressure 156/94 146/98 O2 Sat by Pulse 94 L 96 Oximetry Medical Decision Making - Medical Decision Making 20-year-old female complaining of cough and cold-like symptoms for 7-8 days. Labs, chest x-ray Covid test, 650 mg Tylenol, 600 mg of Motrin, EKG ordered. Covid test positive. Patient was informed that she qualifies for the monoclonal antibody treatment. She declined stating that she doesn't feel all that bad and wants to try to go home and do conservative management. Case discussed with Dr. Koch, patient can discharge home - Lab Data Result diagrams: 01/22/21 17:25 01/22/21 17:25 Lab Results 01/22/21 01/22/21 01/22/21 Range/Units 17:25 17:25 17:32 WBC 4.0 (3.8-10.6) k/uL RBC 6.01 H (3.80-5.40) m/uL Hgb 15.8 (11.4-16.0) gm/dL Hct 48.0 H (34.0-46.0) % MCV 79.8 L (80.0-100.0) fL MCH 26.2 (25.0-35.0) pg MCHC 32.8 (31.0-37.0) g/dL RDW 14.1 (11.5-15.5) % Plt Count 173 (150-450) k/uL MPV 7.8 Neutrophils % 60 % Lymphocytes % 32 % Monocytes % 4 % Eosinophils % 2 % Basophils % 1 % Neutrophils # 2.4 (1.3-7.7) k/uL Lymphocytes # 1.3 (1.0-4.8) k/uL Monocytes # 0.2 (0-1.0) k/uL Eosinophils # 0.1 (0-0.7) k/uL Basophils # 0.0 (0-0.2) k/uL Sodium 138 (137-145) mmol/L Potassium 4.0 (3.5-5.1) mmol/L Chloride 102 (98-107) mmol/L Carbon Dioxide 27 (22-30) mmol/L Anion Gap 9 mmol/L BUN 11 (7-17) mg/dL Creatinine 0.77 (0.52-1.04) mg/dL Est GFR (CKD-EPI)AfAm >90 (>60 ml/min/1.73 sqM) Est GFR (CKD-EPI)NonAf >90 (>60 ml/min/1.73 sqM) Glucose 96 (74-99) mg/dL Calcium 8.7 (8.4-10.2) mg/dL Total Bilirubin 0.6 (0.2-1.3) mg/dL AST 39 H (14-36) U/L ALT 48 H (4-34) U/L Alkaline Phosphatase 98 (38-126) U/L Total Protein 7.3 (6.3-8.2) g/dL Albumin 4.3 (3.5-5.0) g/dL Coronavirus (PCR) Detected A (Not Detectd) - EKG Data -: EKG Interpreted by In EKG shows normal: sinus rhythm Rate: tachycardia EKG Comments: Ventricular rate 119 bpm, W[place] interval 128 ms, QRS duration 82 ms, QT/QTC 304/427 ms, PRT axes 57/89/21. Sinus tachycardia, otherwise normal ECG. Disposition Clinical Impression: COVID-19 Disposition: HOME SELF-CARE Condition: Stable Instructions (If sedation given, give patient instructions): Coronavirus Disease 2019 (COVID-19) Is patient prescribed a controlled substance at d/c from ED?: No Referrals: Freddy Daniels MD [Primary Care Provider] - 1-2 days Time of Disposition: 18:32
[2021-01-22 18:29] VITALS: BP 146/98; PULSE 113; TEMP 100.9
== END 2021-01-22 18:44 | disposition home or self-care (01) ==
LOC: EC 16:39
DX: U07.1 COVID-19 (principal); Z86.718 Personal history of other venous thrombosis and embolism
CPT/HCPCS: 36415; 71046; 80053; 85025; 87635; 93005; 99283